=== PATIENT | male | born 1995 | race Two or more races ===

== ENCOUNTER 2024-04-03 06:05 | Emergency (ER) | payer MEDICARE, MEDICAID, SELFPAY ==
--- NOTE | ~2024-04-03 | XR_ITS ---
EXAMINATION: XR CHEST CLINICAL INFORMATION: dyspnea COMPARISON: None available. TECHNIQUE: Frontal view of the chest was obtained. FINDINGS: No consolidation, pleural effusion or pneumothorax. Cardiomediastinal silhouette is normal. Osseous structures are intact. XR/XR chest 1V IMPRESSION: No acute airspace disease. Electronically signed by: Tad Pyle MD 04/03/2024 07:08 AM [facility] [place]
[2024-04-03 06:06] VITALS: BP 106/73; PULSE 106; RESP 24; TEMP 36.6; O2SAT 95; BMI 26.5
--- NOTE | 2024-04-03 06:15 | ECG_ITS ---
Test Reason : dyspnea Blood Pressure : / mmHG Vent. Rate : 098 BPM Atrial Rate : 098 BPM P-R Int : 144 ms QRS Dur : 084 ms QT Int : 340 ms P-R-T Axes : 071 079 070 degrees QTc Int : 434 ms Normal sinus rhythm with sinus arrhythmia Normal ECG No previous ECGs available Referred By: Corina Landon Electronically Signed By:Cas Sewell
[2024-04-03 06:21] VITALS: RESP 8
[2024-04-03] MEDS: Albuterol Sulfate 7.5 MG, Albuterol Sulfate (0.083%) 2.5 MG 10 MG INHALE (06:24)
[2024-04-03 06:38] LABS: Venous Blood Gas Refer to POC result
[2024-04-03] MEDS: methylPREDNISolone Sod Succ 125 MG/2 ML VIAL 60 MG IVPUSH ×2 (06:38→08:45)
[2024-04-03] MEDS: Magnesium Sulfate/H2O 2 GM/50 ML PIGGYBACK IV (06:38)
[2024-04-03 06:39] LABS: MANUAL DIFF FLAG NO
[2024-04-03 06:41] LABS: VBG Base Excess -1.4 mmol/L; VBG HCO3 22 mmol/L (22-26); VBG pCO2 34 mmHg; VBG pH 7.41 (7.32-7.43); VBG pO2 75 mmHg
[2024-04-03 06:50] LABS: Basophils Percent Auto 0.4 % (0-2); Eosinophils Absolute Auto 0.3 X10*3/uL (0.0-0.4); Hematocrit 48.1 % (42.0-52.0); Hemoglobin 17.1 g/dl (14.0-18.0); Imm Gran Abs Auto 0.02 X10*3/uL (0.00-0.03); Imm Gran Pct Auto 0.3 % (0.0-0.4); Lymphocytes Absolute Auto 3.2 X10*3/uL (1.2-4.9); Lymphocytes Percent Auto 44.1 % (20-40); Mean Corpuscular HGB Conc 35.6 g/dl (31.0-36.0); Mean Corpuscular Hemoglobin 32.4 pg (27.0-33.0); Mean Corpuscular Volume 91.3 fL (80.0-98.0); Mean Platelet Volume 11.5 fL (9.4-12.4); Monocytes Absolute Auto 0.4 X10*3/uL (0.1-1.2); Monocytes Percent Auto 5.7 % (2-11); Neutrophils Absolute Auto 3.3 x10*3/uL (2.0-8.3); Neutrophils Percent Auto 45.5 % (45-73); Platelet Count 186 X10*3/uL (160-400); Red Blood Count 5.27 X10*6/uL (4.60-5.80); Red Cell Distribution Width 11.5 % (11.0-16.0); White Blood Count 7.3 X10*3/uL (4.8-10.8)
[2024-04-03 06:56] LABS: Alanine Aminotransferase 21 U/L (0-40); Albumin Level 4.5 g/dL (3.5-5.0); Alkaline Phosphatase 104 U/L (39-117); Anion Gap 14 (12-20); Aspartate Amino Transferase 26 U/L (5-37); Bilirubin Direct 0.2 mg/dL (0.0-0.5); Bilirubin Total 0.5 mg/dL (0.0-1.0); Blood Urea Nitrogen 11 mg/dL (9-16); Calcium 9.8 mg/dL (8.4-10.2); Carbon Dioxide 21 mmol/L (22-29); Chloride 109 mmol/L (96-108); Creatinine Clr Calc Pharmacy 140.2; Estimated Glomerular Filt Rate > 60; Glucose Random 107 mg/dL (60-115); Potassium 4.2 mmol/L (3.3-5.1); Sodium 140 mmol/L (135-145); Total Protein 7.7 g/dL (6.5-8.0)
--- NOTE | 2024-04-03 07:06 | ED_ITS ---
HPI - SOB/Dyspnea General Chief Complaint: Dyspnea Stated Complaint: Diff breathing Time Seen by Provider: 04/03/24 06:39 Source: patient Mode of arrival: ambulatory Limitations: no limitations History of Present Illness ED Provider: NISHI ALCALA PA-C HPI Narrative: 28 year old male with pmhx significant for asthma presents to the ED today for evaluation of shortness of breath x1 week. He admits to running out of both his inhaler and nebulizer. He has not been able to get a refill of his medications as he has been unable to follow up with his PCP due to recent insurance changes. He has been using his mom's nebulizer without improvement. He attempted to go to work today however his breathing became increasingly difficult, prompting him to come to the ED. States he has not required hospital admission for his asthma since he was a child. Denies known sick contacts. Denies fever/ chills, N/V, chest pain, palpitations. Related Data Previous Rx's ?Medication ?Instructions ?Recorded albuterol sulfate 1.25 mg/3 mL 1.25 mg (3 mL) inhalation Q4-6H 04/03/24 solution for nebulization PRN shortness of breath or wheezing #75 mL albuterol sulfate 90 mcg/actuation 2 puff inhalation Q20M PRN 04/03/24 aerosol inhaler shortness of breath or wheezing #8.5 grams prednisone 20 mg tablet 40 mg (2 x 20 mg) PO DAILY 5 days 04/03/24 #10 tabs Allergies Allergy/AdvReac Type Severity Reaction Status Date / Time No Known Allergies Allergy Verified 04/03/24 06:08 Review of Systems 2 Review of Systems: Constitutional: No fever, chills, fatigue, night sweats, weight changes ENT/Mouth: No ear pain, hearing loss, nasal congestion, sinus pain, rhinorrhea, sore throat Eyes: No eye pain, swelling, redness, vision changes, discharge Cardio: No chest pain, palpitations, METZ, orthopnea, peripheral edema Pulm: No SOB, cough, sputum, wheezing, dyspnea, hemoptysis, +SOB GI: No nausea, vomiting, hematemesis, abdominal pain, diarrhea, constipation, hematochezia, melena : No irregular bleeding, dysuria, frequency, urgency, hesitancy, hematuria, flank pain, urinary flow changes, urinary incontinence or retention MSK: No back pain, neck pain, joint pain, myalgias Skin: No lesions, rashes Neuro: No weakness, numbness, paresthesias, LOC, dizziness, headache Psych: No anxiety/panic, depression, SI/HI, AH/VH All other systems reviewed and are negative. [facility] Past Medical History Attestation statement: The following information was validated with the patient. Source: old records reviewed and nursing notes reviewed Social History Social History Smoked in Last 30 Days: No Use of substances other than those prescribed or required for medical reasons: Yes Substance Use Type: Marijuana Substance Use Frequency: Daily Advance Directives: No Advance Directives Information Provided: Yes Do you have a plan to hurt others: No Plan Physical Exam 2 Vital Signs: Vital Signs: Last Vital Signs Temp 97.9 F 04/03/24 09:30 Pulse 89 04/03/24 09:30 Resp 17 04/03/24 09:30 BP 125/84 04/03/24 09:30 Pulse Ox 96 04/03/24 09:30 O2 Del Method Room Air 04/03/24 08:40 BMI result Body Mass Index 26.5 tachy, satting 95% on RA General: Well appearing, in no acute distress. Skin: Warm, dry, intact. No rashes or lesions. Head: Normocephalic, atraumatic. EENT: Hearing is intact b/l. Conjunctiva clear. Sclera is anicteric. PERRLA. EOM intact. Moist mucous membranes.? Neck: Supple without LAD. FROM. Trachea midline.? Cardiac: Chest wall symmetric. RRR. No MRG. No JVD. Lungs: Normal respiratory effort without accessory muscle use. no tripoding. no audible wheezes. no increased effort of breathing. no accessory muscle use. diffuse expiratory wheezes and ronchi. Back: No midline spinous or paraspinal tenderness. No step off deformity. Ext: Upper and lower extremities atraumatic, without tenderness, deformity, swelling or erythema. Full ROM throughout. Strength 5/5 throughout. no calf tenderness. Neuro: AOx3. Normal speech. Ambulating with steady gait. Psych: Appropriate mood and affect. Responds appropriately to questions. Course Course Course Narrative: 629 -- On initial presentation, patient was noted to have audible wheezes in triage. Speaking in 2-3 word sentences. Tripoding. At that time, overnight provider ordered magnesium, albuterol and Solu-Medrol for treatment Patient was speaking in complete sentences to overnight provider (Dr. Landon). On my initial examintation, approximately 30 minutes after medication administration, patient is not in any respiratory distress. He is no longer tripoding. There are no audible wheezes however there are diffuse expiratory wheezes/rhonchi on auscultation. he reports feeling much better since being medicated. will add on additional dose of solumedrol with re-evaluation. > CXR and viral swabs pending. 919 -- CXR without pneumonia or effusion. He tested negative for covid, flu, and rsv. > On re-evaluation, patient reports significant improvement in symptoms. his lungs are CTA. there is no sign of respiratory distress. his vitals are stable. he is not hypoxic. he has been observed for approximately 3 hours with improvement. given his acute presentation, I offered to admit patient for further treatment with IV steroids. he is declining at this time. 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 prednisone and refills of albuterol/ nebulizer sent to pharmacy. Patient has remained stable throughout ED visit today. Discussed worrisome signs and symptoms and when to return to the ED. All questions answered at this time. Patient is agreeable with disposition and stable for discharge. Medications Administered Discontinued Medications Generic Name Dose Route Start Last Admin Trade Name Freq PRN Reason Stop Dose Admin Albuterol Sulfate 7.5 mg/ 10 mg 04/03/24 06:21 04/03/24 06:24 Albuterol Sulfate 2.5 mg INHALE 04/03/24 06:22 10 mg ONCE ONE Administration Magnesium Sulfate 2 gm in 50 mls @ 150 mls/hr 04/03/24 06:15 04/03/24 06:58 Magnesium Sulfate/H2o IV 04/03/24 06:34 Infused ONCE ONE Infusion Methylprednisolone Sodium Succinate 60 mg 04/03/24 06:15 04/03/24 06:38 Methylprednisolone Sod Succ 125 Mg/2 Ml Vial IVPUSH 04/03/24 06:16 60 mg ONCE ONE Administration Methylprednisolone Sodium Succinate 60 mg 04/03/24 07:57 04/03/24 08:45 Methylprednisolone Sod Succ 125 Mg/2 Ml Vial IVPUSH 04/03/24 07:58 60 mg ONCE ONE Administration Medical Decision Making Medical Decision Making [facility] Narrative: 28 year old male with pmhx significant for asthma presents to the ED today for evaluation of shortness of breath, worsening x1 week. Tachycardic to 106. Tachypneic to 24. Not hypoxic. Afebrile. Normal respiratory effort without accessory muscle use. no tripoding. no audible wheezes. no increased effort of breathing. no accessory muscle use. diffuse expiratory wheezes and ronchi. Differential diagnosis includes elgin=thma exacerbtion, bronchitis, pneumonia, viral syndrome. Unlikely ACS, arrhythmia, PE. Plan for viral testing, CXR, EKG, ED bronch protocol, steroids, and re- evaluation. Differential Diagnosis Differential Diagnoses: The differential diagnosis associated with the presentation includes As above Admission/Observation Consideration of admission/observation: Escalation of care including admission/observation considered Admission considered on presentation Lab Data [facility] Lab Attestation statement: I reviewed the patient's lab results. As above 04/03/24 06:25 04/03/24 06:25 Labs: Lab Results 04/03/24 04/03/24 Range/Units 06:25 06:34 WBC 7.3 (4.8-10.8) X10*3/uL RBC 5.27 (4.60-5.80) X10*6/uL Hgb 17.1 (14.0-18.0) g/dl Hct 48.1 (42.0-52.0) % MCV 91.3 (80.0-98.0) fL MCH 32.4 (27.0-33.0) pg MCHC 35.6 (31.0-36.0) g/dl RDW 11.5 (11.0-16.0) % Plt Count 186 (160-400) X10*3/uL MPV 11.5 (9.4-12.4) fL Immature Gran % (Auto) 0.3 (0.0-0.4) % Neut % (Auto) 45.5 (45-73) % Lymph % (Auto) 44.1 H (20-40) % Millard % (Auto) 5.7 (2-11) % Eos % (Auto) 4.0 (0-4) % Baso % (Auto) 0.4 (0-2) % Lymph # (Auto) 3.2 (1.2-4.9) X10*3/uL Millard # (Auto) 0.4 (0.1-1.2) X10*3/uL Eos # (Auto) 0.3 (0.0-0.4) X10*3/uL Baso # (Auto) 0.0 (0.0-0.2) X10*3/uL Abs Immat Gran (auto) 0.02 (0.00-0.03) X10*3/uL Absolute Neuts (auto) 3.3 (2.0-8.3) x10*3/uL Absolute Nucleated RBC 0.000 (0.0-0.012) X10*3/uL Nucleated RBC % (auto) 0.0 (0.0-0.2) /100WBC VBG pH 7.41 (7.32-7.43) VBG pCO2 34 mmHg VBG pO2 75 mmHg VBG HCO3 22 (22-26) mmol/L VBG O2 Saturation 96.0 % VBG Base Excess -1.4 mmol/L Sodium 140 (135-145) mmol/L Potassium 4.2 (3.3-5.1) mmol/L Chloride 109 H (96-108) mmol/L Carbon Dioxide 21 L (22-29) mmol/L Anion Gap 14 (12-20) BUN 11 (9-16) mg/dL Creatinine 0.85 (0.5-1.4) mg/dL Estim Creat Clear Calc 140.2 Estimated GFR > 60 Random Glucose 107 (60-115) mg/dL Calcium 9.8 (8.4-10.2) mg/dL Magnesium 2.0 (1.6-2.6) mg/dL Total Bilirubin 0.5 (0.0-1.0) mg/dL Direct Bilirubin 0.2 (0.0-0.5) mg/dL AST 26 (5-37) U/L ALT 21 (0-40) U/L Alkaline Phosphatase 104 (39-117) U/L Total Protein 7.7 (6.5-8.0) g/dL Albumin 4.5 (3.5-5.0) g/dL Influenza Type A (PCR) NEGATIVE (Negative) Influenza Type B (PCR) NEGATIVE (Negative) RSV RNA Qual (PCR) NEGATIVE (Negative) SARS-CoV-2 RNA (RT-PCR) NEGATIVE (Negative) Independent Interpretation I performed an independent interpretation of an: EKG and Plain X-Ray Interpretation: CXR without infiltrate or consolidation ekg showing sinus rhythm with sinus arrhythmia, rate of 98 bpm, no acute ischemic changes Radiology Impression Discussion of test interpretation with radiology: I have reviewed the radiologist's reading. Radiologist Impression: EXAMINATION: XR CHEST CLINICAL INFORMATION: dyspnea COMPARISON: None available. TECHNIQUE: Frontal view of the chest was obtained. FINDINGS: No consolidation, pleural effusion or pneumothorax. Cardiomediastinal silhouette is normal. Osseous structures are intact. XR/XR chest 1V IMPRESSION: No acute airspace disease. Electronically signed by: Tad Pyle MD 04/03/2024 07:08 AM [facility] Prescription Management I considered prescription management with: Other (steroid, albuterol) Chronic Conditions Patient?s care impacted by: Other (asthma) Social Determinants Patient?s care significantly limited by Social Determinants of Health including: Other Social Determinant of Health Critical Care Time Critical Care Time Critical Care Time: Yes Total Critical Care Time: 31 Attestation: Critical care time in the amount of 31 minutes has been provided to the patient in terms of direct patient care, frequent reevaluation, review and interpretation of medical data and results, and management of potentially life- threatening conditions. This is all outside of any medical procedures. Discharge Plan Discharge Clinical Impression: Asthma with exacerbation Patient Disposition: Home, Self-Care Instructions: Asthma (ED), How to Use a Nebulizer (ED) Additional Instructions: You were evaluated in the ED today for difficulty breathing. You were administered multiple medications/ breathing treatments with improvement. You tested negative for covid, flu, and rsv. Your chest xray does not demonstrate pneumonia. Your blood work is reassuring. Prednisone is a steroid that has been sent to your pharmacy. As discussed, take this over the next 5 days to help with your breathing. I have also sent refills of your nebulizer and inhaler. If you feel that you are using your inhaler and your nebulizer more often without improvement, please return to the ED. You were offered admission over night however are declining at this time and would like to be discharged home. Return to the ED with new or worsening symptoms. In the case of an emergency call 911. Prescriptions: New prednisone 20 mg tablet 40 mg PO DAILY 5 Days Qty: 10 0RF albuterol sulfate 90 mcg/actuation HFA aerosol inhaler 2 puff inhalation Q20M PRN (Reason: shortness of breath or wheezing) Qty: 8.5 0RF albuterol sulfate 1.25 mg/3 mL solution for nebulization 1.25 mg inhalation Q4-6H PRN (Reason: shortness of breath or wheezing) Qty: 75 0RF Referrals: [facility] [Provider Group] [facility] [place] [Provider Group] [facility] [Provider Group] Stand Alone Forms: Work/School Release Interventions: ED Discharge Assessment Last Done: 04/03/24 09:30 Discharge Date/Time: 04/03/24 09:30 Print Language: Japanese
[2024-04-03 07:19] LABS: Influenza A PCR NEGATIVE (Negative); Influenza B PCR NEGATIVE (Negative); Resp Syncy Virus RNA Qual PCR NEGATIVE (Negative); SARS COV2 PCR INHOUSE NEGATIVE (Negative)
[2024-04-03 08:40] VITALS: BP 125/84; PULSE 89; RESP 17; O2SAT 96
[2024-04-03 09:30] VITALS: BP 125/84; PULSE 89; RESP 17; TEMP 36.6; O2SAT 96
== END 2024-04-03 09:30 | disposition home or self-care (01) ==
PROVIDERS: Emergency Medicine; Emergency Provider Emergency Medicine
DX: J45.901 Unspecified asthma with (acute) exacerbation (principal); R06.00 Dyspnea, unspecified; Z79.899 Other long term (current) drug therapy; Z03.818 Encounter for observation for suspected exposure to other biological agents ruled out
CPT/HCPCS: 0241U; 36415; 71045; 80048; 80076; 82803; 83735; 85025; 93005; 94640; 96365; 96375; 96376; 99284; 99285; J2919; J3475

== ENCOUNTER → 2024-04-03 06:15 | Outpatient (BNV) | payer MEDICARE, MEDICAID, SELFPAY | PROVIDERS: Emergency Provider Emergency Medicine; Visit Provider Internal Medicine Cardiovascular Disease | DX: R06.00 Dyspnea, unspecified (principal) | CPT/HCPCS: 93010 ==

== ENCOUNTER → 2024-04-03 06:16 | Outpatient (BNV) | payer MEDICARE, MEDICAID, SELFPAY | PROVIDERS: Emergency Provider Emergency Medicine; Visit Provider Radiology Diagnostic Radiology | DX: R06.00 Dyspnea, unspecified (principal) | CPT/HCPCS: 71045 ==